=== PATIENT | female | born 1965 | race Caucasian/White ===

== ENCOUNTER 2024-09-26 15:43 | Emergency (ER) | payer OTHER, SELFPAY ==
[2024-09-26 15:46] VITALS: BP 179/97
[2024-09-26 16:07] LABS: % Basophils 0.3 % (0-2); % Eosinophils 0.2 % (0-6); % Immature Granulocytes 0.2 % (0-0.5); % Lymphocytes 21.7 % (20.5-51.1); % Neutrophils 69.6 % (42.2-75.2); Absolute Lymphocytes 1.3 10^3/uL (1.2-3.4); Absolute Monocytes 0.5 10^3/uL (0.1-0.6); Absolute Neutrophils 4.1 10^3/uL (1.4-6.5); Hematocrit 44.4 % (37.0-47.0); Hemoglobin 14.7 g/dL (12.0-16.0); Mean Corp Hgb Conc. 33.1 g/dL (33.0-37.0); Mean Corpuscular Hgb 30.6 pg (27.0-31.0); Mean Corpuscular Volume 92.5 fL (81.0-99.0); Mean Platelet Volume 10.2 fL (7.4-10.4); Nucleated Red Blood Cells % 0 %; Platelet Count 245 10^3/uL (130-400); White Blood Cell Count 5.9 10^3/uL (4.8-10.8)
[2024-09-26 16:22] LABS: ALT (SGPT) 22 U/L (0-35); AST (SGOT) 29 U/L (14-36); Albumin 4.9 g/dl (3.5-5.0); Alkaline Phosphatase 51 U/L (38-126); Blood Urea Nitrogen 11 mg/dl (7-17); Calcium 10.1 mg/dl (8.4-10.2); Carbon Dioxide 28 mmol/L (22-30); Chloride 105 mmol/L (98-107); Glucose 123 mg/dl (70-99); Potassium 4.9 mmol/L (3.5-5.1); Sodium 144 mmol/L (135-145); Total Bilirubin 0.8 mg/dl (0.2-1.3); Total Protein 8.1 g/dl (6.3-8.2); eGFR > 60.00
[2024-09-26 18:45] VITALS: BP 186/95
--- NOTE | 2024-09-26 18:48 | ED.GENMED ---
History of Present Illness
General
Chief Complaint: Blood Pressure Problem
Time Seen by Provider: 09/26/24 18:35
History of Present Illness
History of Present Illness:
59-year-old female presents the emergency department for evaluation of lightheadedness and elevated blood pressure reading. 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
on several reported readings. She states her symptoms are somewhat improved but she also notes headache and sore throat at this point. No fevers or chills. Does report recent vacation in [place]. Also notes a rash to bilateral lower
extremities, states this is a common rash for her to get each year when the summer begins. No chest pain, shortness of breath, vision changes, or extremity paresthesias. No prior history of hypertension. Last saw her PCP 1 month ago and blood
pressure was reportedly normal
Past History
Past History
ED Past Medical History: None
ED Past Surgical History: Gynecological
Social History
Tobacco: Non-smoker
Alcohol: Occasional
Drug: None
Personal:
Living: with family
Review of Systems
Review of Systems
Allergies reviewed?: Yes
All Other Systems: ROS reviewed and negative except as documented in HPI and ROS
Phy Exam
Physical Exam
Physical Exam:
GEN: Well appearing, NAD, WDWN
HEENT: Oral mucosa moist, no scleral icterus, no nasal congestion
Cardiac: Regular rate and rhythm, no murmur
Lung: No respiratory distress, no tachypnea
MSK: No gross deformity or injuries
Skin: Good color, no pallor or jaundice, nonblanching erythematous/petechial lesions to the medial lower legs bilaterally, nontender
Neuro: AO x3; CN II-XII grossly intact. BUE strength 5/5 in all candelaria, sensation intact and symmetric. BLE strength 5/5 in all candelaria, sensation intact and symmetric
Psych: Calm, cooperative
Course
Orders/Labs/Results
Orders:
Orders
09/26/24 15:48
Electrocardiogram (*1) Urgent
Reason for Study: Hypertension, Benign
EKG- Treatment ONCE
09/26/24 15:55
Complete Blood Count/With Diff Urgent
Comprehensive Metabolic Panel Urgent
Abnormal Lab Results
09/26/24
15:55
Glucose 123 H mg/dl
(70-99)
09/26/24 15:55
09/26/24 15:55
Vital Signs
Initial and Last Documented VS:
Initial Vital Signs
Temp Pulse Resp BP Pulse Ox
98.8 F 79 16 179/97 100
09/26/24 15:46 09/26/24 15:46 09/26/24 15:46 09/26/24 15:46 09/26/24 15:46
Last Documented Vital Signs
Temp Pulse Resp BP Pulse Ox
98.8 F 75 18 186/95 100
09/26/24 15:46 09/26/24 18:45 09/26/24 18:45 09/26/24 18:45 09/26/24 18:45
MDM/Problems Addressed
MDM/Problems Addressed:
In regards to the patient's elevated blood pressure reading, recommend home monitoring once daily and primary care follow-up, no evidence of endorgan damage warranting urgent lowering at this time. Unclear causative nature of her petechial lesions
to the lower extremities, recommend outpatient dermatology evaluation as hematologic concerns are lessened by normal CBC/platelet count
*Critical Care Note
Total Time (30-74mins, 75-104mins- exclusive of procedures): Not Applicable
ED Attending Note
-
Portions of this chart may have been created with voice recognition software.� Occasional wrong word or��sound alike� substitutions may have occurred due to the inherent limitations of voice recognition software.
Discharge Plan
Departure
Patient Disposition: Home (Routine Discharge)
Date of Disposition: 09/26/24
Time of Disposition: 18:51
Patient with high blood pressure during this ER visit?: No
Discharge Problem:
Elevated blood pressure reading, Petechial rash
Instructions: High Blood Pressure (DC)
Prescriptions:
No Action
sertraline 50 MG tablet
50 mg PO DAILY
Activity Restrictions/Additional Instructions:
Check your blood pressure once daily first thing in the morning for the next 7 days and log these numbers. Follow-up with your primary care doctor within the next 1 to 2 weeks if readings are consistently greater than 140/90
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
Interventions
Interventions:
*Risk Screen - Suicide Last Done: 09/26/24 15:48
*Neglect/Abuse Screening Last Done: 09/26/24 15:48
*Nursing Disposition Last Done: 09/26/24 18:56
ED- Cardiac Assessment Last Done: 09/26/24 18:52
ED- Neurological Assessment Last Done: 09/26/24 18:52
ED- Pulmonary Assessment Last Done: 09/26/24 18:52
Discharge Date and Time
Discharge Date/Time: 09/26/24 18:56
Print Language: [id number]
== END 2024-09-26 18:56 | disposition home or self-care (01) ==
LOC: EMR 15:43
PROVIDERS: Emergency Medicine; EMERGENCY PHYSICIAN Emergency Medicine; FAMILY PHYSICIAN Nurse Practitioner Adult Health
DX: R23.3 Spontaneous ecchymoses (principal); R03.0 Elevated blood-pressure reading, without diagnosis of hypertension
CPT/HCPCS: 99283; 80053; 85025; 93005